=== PATIENT | male | born 2000 | race Caucasian/White ===

== ENCOUNTER 2021-03-01 17:47 | Emergency (ER) | payer MEDICAID ==
[~2021-03-01] VITALS: Ht 188 cm; Wt 100.0 kg
[2021-03-01 18:05] VITALS: BP 151/92
[2021-03-01] MEDS ORDERED: SULF1TAB48 MT (21:30)
[2021-03-01] MEDS ORDERED: CEFTRIAXONE SODIUM 1 G/VIAL IM ONE (21:30)
[2021-03-01] MEDS ORDERED: CEPH500C2 MT (21:30)
[2021-03-01] MEDS ORDERED: LIDOCAINE HCL 1% 20ML VIAL (Pyxis) INJ INFIL ONE (21:30)
[2021-03-01] MEDS ORDERED: IBUP-2028 MT (21:30)
== END 2021-03-01 23:18 | disposition home or self-care (01) ==
LOC: ER 17:47
DX: L03.116 Cellulitis of left lower limb (principal)
CPT/HCPCS: 96372; 99283; J0696; J3490